=== PATIENT | female | born 1960 | race Caucasian/White ===

== ENCOUNTER 2020-04-30 09:18 | Outpatient (CLI) | payer MEDICARE, SELFPAY ==
--- NOTE | 2020-04-30 09:31 | MM_ITS ---
WS: [id number] BILATERAL DIGITAL SCREENING MAMMOGRAPHY WITH CAD CLINICAL INFORMATION: SCREENING HISTORY: Screening mammogram. No current complaints. COMPARISON: April 26, 2019 TECHNIQUE: Bilateral CC and MLO views. FINDINGS: Scattered fibroglandular densities bilaterally. No suspicious focal mass, asymmetry, calcifications, or architectural distortion. No evidence of malignancy. Dystrophic calcifications [facility]. MM/[place] [id number] IMPRESSION: BI-RADS: 2-Benign FOLLOW UP: 1 Year Follow-up Recommend return to annual screening mammography.
== END 2020-04-30 09:19 | disposition home or self-care (01) ==
LOC: RADSHAW 09:25
PROVIDERS: PCP Nurse Practitioner Family; Visit Provider Nurse Practitioner Family
DX: Z12.31 Encounter for screening mammogram for malignant neoplasm of breast (principal)
CPT/HCPCS: 77067

== ENCOUNTER 2021-05-06 09:13 | Outpatient (CLI) | payer MEDICARE, SELFPAY ==
--- NOTE | 2021-05-06 09:20 | MM_ITS ---
WS: [id number] BILATERAL SCREENING DIGITAL MAMMOGRAM WITH CAD HISTORY: SCREENING COMPARISON: 04/30/2020, 04/26/2019 and 03/06/2016 Bilateral CC and MLO views submitted. Computer aided detection analyzed. Breast composition: There are scattered areas of fibroglandular density. No suspicious masses, microc alcifications or architectural distortion. Stable asymmetry in the lateral RIGHT breast seen best on the CC projection. 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 There is an asymmetry measuring 7 mm with increased density i n the medial LEFT breast. Seen best on the CC projection. MM/[place] [id number] IMPRESSION: BI-RADS: 0-Incomplete: Need additional imaging evaluation FOLLOW UP: Need Additional Imaging LEFT breast: Spot compression views (CC and MLO). True ML. Ultrasound to follow if abnormality persists.
== END 2021-05-06 09:14 | disposition home or self-care (01) ==
LOC: RADSHAW 09:18
PROVIDERS: PCP Nurse Practitioner Family; Visit Provider Nurse Practitioner Family
DX: Z12.31 Encounter for screening mammogram for malignant neoplasm of breast (principal)
CPT/HCPCS: 77067

== ENCOUNTER 2021-06-06 09:27 | Outpatient (CLI) | payer MEDICARE, SELFPAY ==
--- NOTE | 2021-06-06 09:36 | MM_ITS ---
WS: [id number] ADDITIONAL VIEWS LEFT MAMMOGRAM HISTORY: ABNORMAL MAMMOGRAM LT BREAST COMPARISON: 05/06/2021, 04/30/2020 and 04/26/2019 Spot compression views LEFT breast in CC, MLO projections and true ML submitted. Asymmetry described on the screening mammogram in the medial LEFT breast has resolved with additional imaging. This was likely fibroglandular soft tissue densities superimpose. MM/[place] [id number] IMPRESSION: BI-RADS: 2-Benign FOLLOW UP: 1 Year Follow-up
== END 2021-06-06 09:28 | disposition home or self-care (01) ==
LOC: RADSHAW 09:34
PROVIDERS: PCP Nurse Practitioner Family; Visit Provider Nurse Practitioner Family
DX: R92.8 Other abnormal and inconclusive findings on diagnostic imaging of breast (principal)
CPT/HCPCS: 77065

== ENCOUNTER 2021-07-05 13:00 | Outpatient (CLI) | payer MEDICARE, SELFPAY ==
--- NOTE | 2021-07-05 13:06 | XR_ITS ---
WS: [id number] Left hand, 3 views, 07/05/2021 Clinical Data: PAIN IN FINGER OF LEFT HAND Comparison: None. Findings: No fractures or dislocations are seen. The soft tissues are unremarkable. The joint spaces are normal XR/XR hand LT min 3V* [id number] Impression: Negative left hand.
== END 2021-07-05 13:01 | disposition home or self-care (01) ==
PROVIDERS: PCP Nurse Practitioner Family; Visit Provider Nurse Practitioner Family
DX: M79.645 Pain in left finger(s) (principal)
CPT/HCPCS: 73130

== ENCOUNTER 2022-05-07 08:51 | Outpatient (CLI) | payer MEDICARE, SELFPAY ==
--- NOTE | 2022-05-07 09:06 | MM_ITS ---
WS: [id number] Bilateral screening 3D tomosynthesis digital mammogram, 05/07/2022 Clinical Data: SCREEN Comparison: 06/06/2021, 05/06/2021, 04/30/2020, 04/26/2019, 04/07/2018, 03/10/2018, 03/09/2017, 03/06/2016, 02/21, 03/02/2014, 12/07/2012, 10/30/2011, 07/10/2010, 07/04/2029, 08/14/2006. Findings: The breast parenchymal pattern shows hyperglandular tissue No spiculated masses or clustered calcific ations are seen. There are no secondary signs of carcinoma. There is a dense calcification in the upp er outer aspect of the left breast unchanged. There are lymph nodes in both axilla. MM/[place] [id number] Impression: 1. Negative bilateral mammogram unchanged. 2. Recommend annual screening mammograms. BIRADS: 1-Negative FOLLOW UP: 1 Year Follow-up The CAD security checker was used.
== END 2022-05-07 08:52 | disposition home or self-care (01) ==
LOC: RADSHAW 08:53
PROVIDERS: PCP Nurse Practitioner Family; Visit Provider Nurse Practitioner Family
DX: Z12.31 Encounter for screening mammogram for malignant neoplasm of breast (principal)
CPT/HCPCS: 77063; 77067

== ENCOUNTER 2023-05-15 10:38 | Outpatient (CLI) | payer MEDICARE, SELFPAY ==
--- NOTE | 2023-05-15 10:46 | MM_ITS ---
WS: [id number] BILATERAL SCREENING DIGITAL TOMOSYNTHESIS MAMMOGRAM WITH CAD HISTORY: SCREENING COMPARISON: 05/07/2022 and 05/06/2021 Bilateral CC and MLO views with tomosynthesis and synthetic mammography submitted. Computer aided det ection analyzed. Breast composition: There are scattered areas of fibroglandular density. No suspicious masses, microc alcifications or architectural distortion. Coarse calcification upper-outer quadrant LEFT breast cons istent with a degenerating fibroadenoma. MM/[place] [id number] IMPRESSION: BI-RADS: 2-Benign FOLLOW UP: 1 Year Follow-up
== END 2023-05-15 10:39 | disposition home or self-care (01) ==
LOC: RAD 10:42
PROVIDERS: PCP Nurse Practitioner Family; Visit Provider Nurse Practitioner Family
DX: Z12.31 Encounter for screening mammogram for malignant neoplasm of breast (principal)
CPT/HCPCS: 77063; 77067

== ENCOUNTER 2024-03-14 10:31 | Outpatient (CLI) | payer MEDICARE, SELFPAY ==
--- NOTE | 2024-03-14 10:36 | XRR_ITS ---
PROCEDURE INFORMATION: Exam: XR Right Ankle Exam date and time: 03/14/2024 10:44 AM Age: 63 years old Clinical indication: Patient HX: Right ankle/ foot pain (heel) for 3 weeks, diabetic; Additional info: R ankle pain TECHNIQUE: Imaging protocol: Radiologic exam of the right ankle. Views: 1 or 2 views. COMPARISON: No relevant prior studies available. FINDINGS: Bones/joints: Moderate plantar calcaneal enthesophyte. Remaining bones and joint spaces are intact. No acute fracture or dislocation. Soft tissues: No significant soft tissue pathology. XR/XR ankle RT 2V [id number] IMPRESSION: No acute pathology. Moderate plantar calcaneal enthesophyte.
== END 2024-03-14 10:32 | disposition home or self-care (01) ==
LOC: RAD 10:32
PROVIDERS: PCP Nurse Practitioner Family; Visit Provider Nurse Practitioner Family
DX: M25.571 Pain in right ankle and joints of right foot (principal); M77.31 Calcaneal spur, right foot
CPT/HCPCS: 73600

== ENCOUNTER → 2024-03-31 14:33 | Outpatient (BNVA) | payer MEDICARE, SELFPAY | PROVIDERS: PCP Nurse Practitioner Family; Visit Provider Podiatrist Foot & Ankle Surgery | DX: M76.61 Achilles tendinitis, right leg | CPT/HCPCS: 99203 ==

== ENCOUNTER 2024-04-12 06:00 | Outpatient (RCR) | payer MEDICARE, SELFPAY | END 2024-04-22 23:59 | disposition home or self-care (01) | LOC: TPT 06:00 | PROVIDERS: Visit Provider Nurse Practitioner Family | DX: M77.50 Other enthesopathy of unspecified foot and ankle (principal); G57.63 Lesion of plantar nerve, bilateral lower limbs | CPT/HCPCS: 97110; 97140; 97162 ==

== ENCOUNTER 2024-04-23 06:00 | Outpatient (RCR) | payer MEDICARE, SELFPAY | END 2024-05-22 23:59 | disposition home or self-care (01) | LOC: TPT 06:00 | PROVIDERS: Visit Provider Nurse Practitioner Family | DX: M77.50 Other enthesopathy of unspecified foot and ankle (principal); G57.63 Lesion of plantar nerve, bilateral lower limbs | CPT/HCPCS: 97035; 97110; 97140 ==

== ENCOUNTER → 2024-04-29 08:51 | Outpatient (BNVA) | payer MEDICARE, SELFPAY | PROVIDERS: Visit Provider Podiatrist Foot & Ankle Surgery | DX: M76.61 Achilles tendinitis, right leg | CPT/HCPCS: 99213 ==

== ENCOUNTER 2024-05-20 07:50 | Outpatient (CLI) | payer MEDICARE, SELFPAY ==
--- NOTE | 2024-05-20 07:53 | MM_ITS ---
WS: [id number] SCREENING DIGITAL BREAST TOMOSYNTHESIS MAMMOGRAM WITH CAD HISTORY: SCREENING COMPARISON: 05/15/2023, 05/07/2022 Bilateral CC and MLO with tomosynthesis and synthetic mammography submitted. Computer aided detection analyzed. Breast composition: There are scattered areas of fibroglandular density. There is a new asymmetry in the central posterior RIGHT breast near 11-12 o'clock measuring 6 mm x 4 mm. There is very slight arc hitectural distortion. This needs to be further evaluated at this time. There is a benign cluster of calcifications in the posterior LEFT breast which is stable. MM/[place] [id number] IMPRESSION: BI-RADS: 0-Incomplete: Need additional imaging evaluation FOLLOW UP: Need Additional Imaging RIGHT breast: Spot compression views (CC and MLO). True ML. Ultrasound to follo w if abnormality persists.
== END 2024-05-20 07:51 | disposition home or self-care (01) ==
LOC: RAD 07:50
PROVIDERS: PCP Nurse Practitioner Family; Visit Provider Nurse Practitioner Family
DX: Z12.31 Encounter for screening mammogram for malignant neoplasm of breast (principal)
CPT/HCPCS: 77063; 77067

== ENCOUNTER 2024-07-12 10:51 | Outpatient (CLI) | payer MEDICARE, SELFPAY ==
--- NOTE | 2024-07-12 10:56 | MM_ITS ---
WS: [id number] ADDITIONAL VIEWS RIGHT MAMMOGRAM WITH DIGITAL BREAST TOMOSYNTHESIS. RIGHT BREAST ULTRASOUND HISTORY: ABNORMAL MAMMOGRAM COMPARISON: 05/12/2024, 05/15/2023, 05/06/2021 RIGHT MAMMOGRAM: Spot compression views and true ML with digital breast tomosynthesis and SM. Focal asymmetry persists measuring 6 x 8 mm in the posterior RIGHT breast just lateral to the nipple line near 9-10 o'clock. Ultrasound to follow. RIGHT BREAST ULTRASOUND 2-D and color Doppler imaging submitted. Ultrasound RIGHT breast near 8:00 demonstrates a benign lymph node 3 cm from the nipple measuring 0.9 x 0.8 x 0.6 cm. This may correspond to the mass. No additional abnormalities are identified. MM/[place] [id number] IMPRESSION: BI-RADS: 2-Benign FOLLOW UP: 1 Year Follow-up Asymmetry in the RIGHT breast probably corresponds to a benign lymph node noted by ultrasound.
== END 2024-07-12 10:52 | disposition home or self-care (01) ==
LOC: RAD 10:53
PROVIDERS: PCP Nurse Practitioner Family; Visit Provider Nurse Practitioner Family
DX: R92.8 Other abnormal and inconclusive findings on diagnostic imaging of breast (principal); R59.0 Localized enlarged lymph nodes
CPT/HCPCS: 76642; 77061; G0279

== ENCOUNTER → 2024-09-01 11:30 | Outpatient (BNVA) | payer MEDICARE, SELFPAY | PROVIDERS: PCP Nurse Practitioner Family; Visit Provider Podiatrist Foot & Ankle Surgery | DX: M76.61 Achilles tendinitis, right leg; S86.011A Strain of right Achilles tendon, initial encounter; X58.XXXA Exposure to other specified factors, initial encounter | CPT/HCPCS: 99213 ==

== ENCOUNTER 2024-09-29 08:25 | Outpatient (CLI) | payer MEDICARE, SELFPAY ==
--- NOTE | 2024-09-29 08:45 | MR_ITS ---
WS: [id number] MRI RIGHT ANKLE WITHOUT CONTRAST. COMPARISON: Radiographs 03/14/2024 Multiplanar, multisequence imaging is performed without contrast. No fractures or marrow edema. Moderate narrowing at the tibiotalar joint space. There is a very tiny defect along the lateral talar dome. There is also a very small, 2 to 3 mm loose body in the fluid be tween the distal tibia and fibula. This may be a fragment from the talar dome defect. Normal size Achilles tendon. 10 mm osteophyte at the attachment of the Achilles tendon to the posteri or calcaneus. There is an additional calcaneal spur along the plantar surface measuring 9 mm. There i s no fluid surrounding the plantar fascia. No fibrosis. Anterior and posterior talofibular ligaments are intact. Normal deltoid ligament. Well-circumscribed osseous density at the medial malleolus is probably from an old avulsion fracture. There is no edema. Peroneal tendons, flexor digitorum and flexor hallucis longus tendons are normal. Extensor tendons ar e normal. MR/MR ankle RT wo con* [id number] IMPRESSION: 1. 9 mm calcaneal spur with no adjacent fluid. No evidence for acute plantar f asciitis. 2. 10 mm osteophyte at the attachment the Achilles tendon. 3. Very tiny osteochondral defect along the lateral dome of the talus. There i s a similar size loose body surrounded by fluid in the distal tibiofibular toshia culation which could be a bone fragment. 4. Moderate narrowing of the tibiotalar joint space from arthritis.
== END 2024-09-29 08:26 | disposition home or self-care (01) ==
LOC: RAD 08:28
PROVIDERS: PCP Nurse Practitioner Family; Visit Provider Podiatrist Foot & Ankle Surgery
DX: M19.071 Primary osteoarthritis, right ankle and foot (principal); M77.31 Calcaneal spur, right foot; M25.771 Osteophyte, right ankle; M24.071 Loose body in right ankle
CPT/HCPCS: 73721

== ENCOUNTER → 2024-11-04 08:45 | Outpatient (BNVA) | payer MEDICARE, SELFPAY | PROVIDERS: PCP Nurse Practitioner Family; Visit Provider Podiatrist Foot & Ankle Surgery | DX: M76.61 Achilles tendinitis, right leg; S86.011A Strain of right Achilles tendon, initial encounter; X58.XXXA Exposure to other specified factors, initial encounter | CPT/HCPCS: 99213 ==

== ENCOUNTER 2025-03-23 05:00 | Outpatient (RCR) | payer MEDICARE, SELFPAY | END 2025-04-22 23:55 | disposition home or self-care (01) | LOC: TPT 05:00 | PROVIDERS: Visit Provider Podiatrist Foot & Ankle Surgery | DX: Z47.89 Encounter for other orthopedic aftercare (principal) | CPT/HCPCS: 97110; 97140 ==

== ENCOUNTER 2025-04-23 05:00 | Outpatient (RCR) | payer MEDICARE, SELFPAY | END 2025-05-22 23:59 | disposition home or self-care (01) | LOC: TPT 05:00 | PROVIDERS: Visit Provider Podiatrist Foot & Ankle Surgery | DX: M25.572 Pain in left ankle and joints of left foot (principal) | CPT/HCPCS: 97110; 97116; 97140 ==

== ENCOUNTER 2025-05-23 05:00 | Outpatient (RCR) | payer MEDICARE, SELFPAY | END 2025-06-22 23:59 | disposition home or self-care (01) | LOC: TPT 05:00 | PROVIDERS: Visit Provider Podiatrist Foot & Ankle Surgery | DX: M25.572 Pain in left ankle and joints of left foot (principal) | CPT/HCPCS: 97110; 97140 ==

== ENCOUNTER 2025-06-23 05:00 | Outpatient (RCR) | payer MEDICARE, SELFPAY | END 2025-07-23 23:59 | disposition home or self-care (01) | LOC: TPT 05:00 | PROVIDERS: Visit Provider Podiatrist Foot & Ankle Surgery | DX: Z47.89 Encounter for other orthopedic aftercare (principal) | CPT/HCPCS: 97110; 97140 ==

== ENCOUNTER 2025-07-24 05:00 | Outpatient (RCR) | payer MEDICARE, SELFPAY | END 2025-08-22 23:59 | disposition home or self-care (01) | LOC: TPT 05:00 | PROVIDERS: Visit Provider Podiatrist Foot & Ankle Surgery | DX: M25.572 Pain in left ankle and joints of left foot (principal) | CPT/HCPCS: 97110; 97116; 97140 ==

== ENCOUNTER 2025-08-30 13:39 | Outpatient (RCR) | payer MEDICARE, SELFPAY | END 2025-09-04 09:59 | disposition home or self-care (01) | LOC: TPT 13:39 | PROVIDERS: Visit Provider Podiatrist Foot & Ankle Surgery | DX: M25.572 Pain in left ankle and joints of left foot (principal) | CPT/HCPCS: 97110; 97140; 97164 ==